=== PATIENT | male | born 1955 | race Caucasian/White ===

== ENCOUNTER 2023-01-11 19:32 | Inpatient (IN) | payer OTHER ==
[~2023-01-11] VITALS: Ht 193 cm; Wt 115.7 kg
[2023-01-11] MEDS ORDERED: IV NORMAL SALINE 1000 ML BAG IV ONE (19:45)
[2023-01-11] MEDS ORDERED: HYDROMORPHONE 1 MG/1 ML DISP.SYRIN IV ONE ×2 (19:45→22:15)
[2023-01-11] MEDS ORDERED: CEFTRIAXONE 1 G in IV DEXTROSE 5% 50 ML IV ONE (19:45)
[2023-01-11] MEDS ORDERED: ONDANSETRON 4 MG/2 ML VIAL IV ONE (19:45)
[2023-01-11] MEDS ORDERED: HYDROMORPHONE 1 MG/1 ML DISP.SYRIN ONE ×2 (19:49→22:18)
[2023-01-11] MEDS ORDERED: CEFTRIAXONE /D5W 50ML IVPB **ER PYXIS IV ONE (19:49)
[2023-01-11] MEDS ORDERED: ONDANSETRON 4 MG/2 ML VIAL ONE (19:49)
[2023-01-11 20:07] LABS: BASOPHILS # (AUTO) 0.1 K/UL (0.0-0.2); BASOPHILS % (AUTO) 0.3 % (0.0-2.0); HEMATOCRIT 46.9 % (36.7-47.1); HEMOGLOBIN 15.5 g/dL (12.5-16.3); LYMPHOCYTES # (AUTO) 1.1 K/uL (0.8-4.8); LYMPHOCYTES % (AUTO) 6.3 % (20.5-51.5); MEAN CORPUSCULAR HEMOGLOBIN 32.3 uug (23.8-33.4); MEAN CORPUSCULAR HGB CONC 33 g/dL (32.5-36.3); MEAN CORPUSCULAR VOLUME 97.5 fL (73.0-96.2); MONOCYTES # (AUTO) 0.1 K/uL (0.1-1.30); MONOCYTES % (AUTO) 0.4 % (0.0-11.0); NEUTROPHILS # (AUTO) 14.5 K/uL (1.8-8.9); PLATELET COUNT (AUTO) 238 K/uL (152-348); RED BLOOD CELL COUNT(AUTO) 4.81 MIL/uL (4.06-5.63); RED CELL DISTRIBUTION WIDTH 13.7 % (12.1-16.2); WHITE BLOOD COUNT (AUTO) 17.7 K/uL (3.6-10.2)
[2023-01-11 20:08] LABS: DIFFERENTIAL COMMENT 1
[2023-01-11 20:14] LABS: CALCIUM 9.5 mg/dL (8.5-10.1); CREATININE 1.7 mg/dL (0.6-1.3); POTASSIUM 4.5 mmol/L (3.5-5.1)
[2023-01-11 20:20] LABS: ALBUMIN 3.4 g/dL (3.4-5.0); BILIRUBIN,DIRECT 0.1 mg/dL (0.0-0.2); BILIRUBIN,TOTAL 0.3 mg/dL (0.2-1.0); TOTAL PROTEIN, SERUM 6.8 g/dL (6.4-8.2)
[2023-01-11] MEDS ORDERED: IOHEXOL 300MG/ML 100 ML INFUS..BTL ONE (20:26)
[2023-01-11] MEDS ORDERED: IV NORMAL SALINE 250 ML IV ONE (20:27)
[2023-01-11] MEDS ORDERED: SWABABLE VALVE TRANSFER SET EA MC ONE (20:27)
[2023-01-11] MEDS ORDERED: METRONIDAZOLE 500 MG/NS 100 ML PIGGYBACK IV ONE (21:15)
[2023-01-11] MEDS ORDERED: METRONIDAZOLE 500 MG/NS 100ML 100 ML IV ONE (21:18)
[2023-01-11] MEDS ORDERED: DIATR MEGLU/DIATRIZOATE SODIUM 30 ML BOTTLE ONE (21:18)
[2023-01-11] MEDS ORDERED: REMEDY ESSENTIAL ZINC PASTE 113 GM TP PRN (23:00)
[2023-01-11] MEDS ORDERED: ONDANSETRON 4 MG/2 ML VIAL IV PRN (23:00)
[2023-01-11] MEDS ORDERED: PIPERACILLIN SODIUM/TAZOBACTAM 4.5 G in IV DEXTROSE 5% 50 ML IV SCH ×2 (23:00→23:30)
[2023-01-11] MEDS ORDERED: ACETAMINOPHEN 325 MG TABLET PO PRN (23:00)
[2023-01-12] VITALS: BP 115/81; TEMP 97.9; O2SAT 95
[2023-01-12] MEDS ORDERED: PIPERACILLIN/TAZO 4.5 GM VIAL IV ONE ×2 (00:23→00:24)
[2023-01-12] MEDS: IV 1/2NS 1000 ML 1,000 ML IV PRN ×2 (00:57→20:37)
[2023-01-12] MEDS: MORPHINE SULFATE 2 MG/1 ML DISP.SYRIN IV PRN ×4 (01:58→20:25)
[2023-01-12 05:14] VITALS: BP 115/81; TEMP 98.2; O2SAT 93
[2023-01-12 07:27] LABS: BASOPHILS # (AUTO) 0.1 K/UL (0.0-0.2); BASOPHILS % (AUTO) 0.5 % (0.0-2.0); EOSINOPHILS % (AUTO) 0.2 % (0.0-7.0); HEMATOCRIT 46.7 % (36.7-47.1); HEMOGLOBIN 16.2 g/dL (12.5-16.3); LYMPHOCYTES # (AUTO) 1.3 K/uL (0.8-4.8); LYMPHOCYTES % (AUTO) 5.7 % (20.5-51.5); MEAN CORPUSCULAR HEMOGLOBIN 33.7 uug (23.8-33.4); MEAN CORPUSCULAR HGB CONC 35 g/dL (32.5-36.3); MEAN CORPUSCULAR VOLUME 97.2 fL (73.0-96.2); MONOCYTES # (AUTO) 1.5 K/uL (0.1-1.30); MONOCYTES % (AUTO) 6.3 % (0.0-11.0); NEUTROPHILS # (AUTO) 20.1 K/uL (1.8-8.9); NEUTROPHILS % (AUTO) 87.3 % (38.5-71.5); PLATELET COUNT (AUTO) 235 K/uL (152-348); RED CELL DISTRIBUTION WIDTH 13.5 % (12.1-16.2); WHITE BLOOD COUNT (AUTO) 23.1 K/uL (3.6-10.2)
[2023-01-12 07:37] LABS: DIFFERENTIAL COMMENT 1
[2023-01-12 07:41] LABS: ALBUMIN 3.3 g/dL (3.4-5.0); BILIRUBIN,TOTAL 0.4 mg/dL (0.2-1.0); CALCIUM 9.3 mg/dL (8.5-10.1); MAGNESIUM 2.3 mg/dL (1.8-2.4); PHOSPHOROUS 3.7 mg/dL (2.5-4.9); TOTAL PROTEIN, SERUM 7.1 g/dL (6.4-8.2)
[2023-01-12] MEDS ORDERED: LISI20TA30 PO (08:00)
[2023-01-12] MEDS ORDERED: HYDR25TA4 PO (08:00)
[2023-01-12] MEDS ORDERED: LEVO50TA PO (08:00)
[2023-01-12] MEDS ORDERED: DABI150C PO (08:00)
[2023-01-12] MEDS ORDERED: PANT40TA2 PO (08:00)
[2023-01-12] MEDS: PIPERACILLIN SODIUM/TAZOBACTAM 3.375 G in IV DEXTROSE 5% 100 ML IV SCH ×2 (08:18→16:20)
[2023-01-12 08:35] LABS: *BILIRUBIN,URIN NEGATIVE (NEGATIVE); *BLOOD, URINE NEGATIVE (NEGATIVE); *CLARITY,URINE CLEAR (CLEAR); *COLOR,URINE YELLOW (YELLOW); *KETONES,URINE TRACE (NEGATIVE); *PROTEIN,URINE 2+ (NEGATIVE); *UROBILINOGEN,URINE 0.2 E.U./dl (NORMAL); LEUKOCYTE ESTERASE ,URINE NEGATIVE (NEGATIVE); NITRITE, URINE NEGATIVE (NEGATIVE); PH,URINE 5.5 (5.0-8.0); UGLUCOSE NEGATIVE (NEGATIVE)
[2023-01-12] MEDS ORDERED: OMEP40CA21 PO (09:09)
[2023-01-12] MEDS ORDERED: LISINOPRIL 20 MG TABLET PO SCH (09:15)
[2023-01-12] MEDS ORDERED: DABIGATRAN ETEXILATE MESYLATE 75 MG CAPSULE PO SCH (09:15)
[2023-01-12] MEDS ORDERED: MORPHINE SULFATE 2 MG/1 ML DISP.SYRIN IV ONE (09:15)
[2023-01-12 10:09] LABS: BACTERIA,URINE FEW /HPF (NONE SEEN); RBC,URINE 0-3 /HPF (0-3)
[2023-01-12] MEDS: PANTOPRAZOLE SODIUM 40 MG TABLET.DR PO SCH (10:15)
[2023-01-12] MEDS: LEVOTHYROXINE SODIUM 50 MCG TABLET PO SCH (10:15)
[2023-01-12 10:25] VITALS: BP 127/76; TEMP 98; O2SAT 94
[2023-01-12] MEDS: DABIGATRAN ETEXILATE MESYLATE 75 MG CAPSULE PO SCH ×2 (10:40→21:46)
[2023-01-12 10:44] LABS: HIV-1 p24 ANTIGEN NON REACTIVE (NONREACTIVE); HIV-1/2 ANTIBODY NON REACTIVE (NONREACTIVE)
[2023-01-12 16:42] VITALS: BP 115/80; TEMP 98.2; O2SAT 95
[2023-01-12] MEDS ORDERED: KETOROLAC TROMETHAMINE 15 MG INJ IVP PRN (17:45)
[2023-01-12] MEDS ORDERED: ACETAMINOPHEN ES 500 MG TABLET PO PRN (17:45)
[2023-01-12 18:06] LABS: *BILIRUBIN,URIN NEGATIVE (NEGATIVE); *BLOOD, URINE NEGATIVE (NEGATIVE); *CLARITY,URINE CLEAR (CLEAR); *COLOR,URINE YELLOW (YELLOW); *KETONES,URINE TRACE (NEGATIVE); *PROTEIN,URINE 2+ (NEGATIVE); *UROBILINOGEN,URINE 0.2 E.U./dl (NORMAL); LEUKOCYTE ESTERASE ,URINE NEGATIVE (NEGATIVE); NITRITE, URINE NEGATIVE (NEGATIVE); PH,URINE 5.5 (5.0-8.0); UGLUCOSE NEGATIVE (NEGATIVE)
[2023-01-12] MEDS: GABAPENTIN 100 MG CAPSULE PO SCH (18:10)
[2023-01-12 18:13] LABS: *CREATININE,URINE 203.2 mg/dL (30-125); *URINE TOTAL PROTEIN RANDOM 62.6 mg/dL (<150/24HR)
[2023-01-12 18:19] LABS: BACTERIA,URINE FEW /HPF (NONE SEEN); RBC,URINE 0-3 /HPF (0-3); WBC,URINE NONE SEEN /HPF (0-3)
[2023-01-12 18:20] LABS: SQUAMOUS EPITHELIAL CELL,UR FEW /HPF (NONE SEEN); URIC ACID CRYSTALS,URINE MODERATE /HPF (NONE SEEN)
[2023-01-12 20:21] VITALS: BP 129/73; TEMP 98.1; O2SAT 93
[2023-01-12] MEDS ORDERED: ACETAMINOPHEN 325 MG TABLET PO ONE (21:00)
[2023-01-12] MEDS ORDERED: diphenhydrAMINE 25 MG CAP PO ONE (21:00)
[2023-01-12] MEDS: MAGNESIUM HYDROXIDE 30 ML LIQUID UDC PO PRN (21:21)
[2023-01-12 22:00] VITALS: O2SAT 98
[2023-01-13] MEDS: PIPERACILLIN SODIUM/TAZOBACTAM 3.375 G in IV DEXTROSE 5% 100 ML IV SCH ×3 (01:55→17:05)
[2023-01-13] MEDS: MORPHINE SULFATE 2 MG/1 ML DISP.SYRIN IV PRN (03:36)
[2023-01-13] MEDS: LEVOTHYROXINE SODIUM 50 MCG TABLET PO SCH (06:13)
[2023-01-13] MEDS: PANTOPRAZOLE SODIUM 40 MG TABLET.DR PO SCH (06:13)
[2023-01-13] MEDS: MAGNESIUM HYDROXIDE 30 ML LIQUID UDC PO PRN (06:13)
[2023-01-13] MEDS: HYDROCODONE/APAP 5-325MG TABLET PO PRN ×2 (06:37→12:37)
[2023-01-13] MEDS: GABAPENTIN 100 MG CAPSULE PO SCH ×3 (08:04→17:05)
[2023-01-13] MEDS: DABIGATRAN ETEXILATE MESYLATE 75 MG CAPSULE PO SCH ×2 (08:05→20:11)
[2023-01-13 08:30] LABS: BASOPHILS # (AUTO) 0.1 K/UL (0.0-0.2); EOSINOPHILS # (AUTO) 0.1 K/uL (0.0-0.7); EOSINOPHILS % (AUTO) 0.6 % (0.0-7.0); HEMOGLOBIN 14.1 g/dL (12.5-16.3); LYMPHOCYTES # (AUTO) 1.4 K/uL (0.8-4.8); LYMPHOCYTES % (AUTO) 12.5 % (20.5-51.5); MEAN CORPUSCULAR HEMOGLOBIN 33.6 uug (23.8-33.4); MEAN CORPUSCULAR HGB CONC 34 g/dL (32.5-36.3); MEAN CORPUSCULAR VOLUME 97.5 fL (73.0-96.2); MONOCYTES # (AUTO) 0.8 K/uL (0.1-1.30); MONOCYTES % (AUTO) 7.4 % (0.0-11.0); NEUTROPHILS # (AUTO) 8.5 K/uL (1.8-8.9); NEUTROPHILS % (AUTO) 78.5 % (38.5-71.5); PLATELET COUNT (AUTO) 206 K/uL (152-348); RED CELL DISTRIBUTION WIDTH 13.7 % (12.1-16.2); WHITE BLOOD COUNT (AUTO) 10.8 K/uL (3.6-10.2)
[2023-01-13 08:40] LABS: DIFFERENTIAL COMMENT 1
[2023-01-13 08:44] LABS: CALCIUM 8.9 mg/dL (8.5-10.1); CREATININE 1.6 mg/dL (0.6-1.3); POTASSIUM 4.2 mmol/L (3.5-5.1)
[2023-01-13] MEDS: BENZOCAINE/MENTH/CETYLPYRD LOZENGE MM PRN ×2 (09:35→17:05)
[2023-01-13] MEDS: IV 1/2NS 1000 ML 1,000 ML IV PRN (11:08)
[2023-01-13 11:19] VITALS: BP 124/79; TEMP 98.2; O2SAT 95
[2023-01-13] MEDS ORDERED: SIMETHICONE 40 MG/0.6 ML, 30ML BOTTLE PO PRN (13:15)
[2023-01-13] MEDS: SIMETHICONE 80 MG TAB.CHEW PO PRN (13:21)
[2023-01-13 15:13] VITALS: BP 123/80; TEMP 98.4; O2SAT 92
[2023-01-13 15:14] LABS: ANISOCYTOSIS 1+; PLATELET ESTIMATE ADEQUATE
[2023-01-13 16:03] LABS: BAND % (MANUAL) 7 % (0-10); LYMPHOCYTES % (MANUAL) 11 % (20-40); NEUTROPHILS % (MANUAL) 75 % (42-75)
[2023-01-13 16:10] LABS: EOSINOPHILS % (MANUAL) 3 % (0-8); MONOCYTES % (MANUAL) 4 % (2-10)
[2023-01-13] MEDS ORDERED: ACETAMINOPHEN 325 MG TABLET PO ONE (20:45)
[2023-01-13] MEDS ORDERED: diphenhydrAMINE 25 MG CAP PO ONE (20:45)
[2023-01-13 20:55] VITALS: BP 144/84; TEMP 98; O2SAT 97
[2023-01-13 20:58] VITALS: O2SAT 98
[2023-01-14] MEDS: PIPERACILLIN SODIUM/TAZOBACTAM 3.375 G in IV DEXTROSE 5% 100 ML IV SCH ×3 (00:34→16:54)
[2023-01-14] MEDS: IV 1/2NS 1000 ML 1,000 ML IV PRN (04:54)
[2023-01-14 05:33] VITALS: BP 126/78; TEMP 98.6; O2SAT 98
[2023-01-14] MEDS: PANTOPRAZOLE SODIUM 40 MG TABLET.DR PO SCH (06:26)
[2023-01-14] MEDS: LEVOTHYROXINE SODIUM 50 MCG TABLET PO SCH (06:26)
[2023-01-14 06:48] LABS: BASOPHILS % (AUTO) 0.5 % (0.0-2.0); EOSINOPHILS # (AUTO) 0.3 K/uL (0.0-0.7); EOSINOPHILS % (AUTO) 3.1 % (0.0-7.0); HEMATOCRIT 39.4 % (36.7-47.1); HEMOGLOBIN 13.3 g/dL (12.5-16.3); LYMPHOCYTES # (AUTO) 1.2 K/uL (0.8-4.8); LYMPHOCYTES % (AUTO) 14.9 % (20.5-51.5); MEAN CORPUSCULAR HGB CONC 34 g/dL (32.5-36.3); MEAN CORPUSCULAR VOLUME 97.9 fL (73.0-96.2); MONOCYTES # (AUTO) 0.7 K/uL (0.1-1.30); MONOCYTES % (AUTO) 8.7 % (0.0-11.0); NEUTROPHILS % (AUTO) 72.8 % (38.5-71.5); PLATELET COUNT (AUTO) 202 K/uL (152-348); RED BLOOD CELL COUNT(AUTO) 4.03 MIL/uL (4.06-5.63); RED CELL DISTRIBUTION WIDTH 13.5 % (12.1-16.2); WHITE BLOOD COUNT (AUTO) 8.3 K/uL (3.6-10.2)
[2023-01-14 07:01] LABS: CALCIUM 8.4 mg/dL (8.5-10.1); CREATININE 1.6 mg/dL (0.6-1.3)
[2023-01-14 07:06] LABS: DIFFERENTIAL COMMENT 1
[2023-01-14 08:20] VITALS: O2SAT 99
[2023-01-14] MEDS: SIMETHICONE 80 MG TAB.CHEW PO PRN (08:39)
[2023-01-14] MEDS: GABAPENTIN 100 MG CAPSULE PO SCH ×3 (08:39→16:54)
[2023-01-14] MEDS: DABIGATRAN ETEXILATE MESYLATE 75 MG CAPSULE PO SCH ×2 (08:41→20:59)
[2023-01-14] MEDS: BENZOCAINE/MENTH/CETYLPYRD LOZENGE MM PRN (10:56)
[2023-01-14] MEDS: HYDROCODONE/APAP 5-325MG TABLET PO PRN (10:56)
[2023-01-14 11:36] VITALS: BP 144/78; TEMP 98.6; O2SAT 96
[2023-01-14 14:46] LABS: BAND % (MANUAL) 8 % (0-10); EOSINOPHILS % (MANUAL) 4 % (0-8); LYMPHOCYTES % (MANUAL) 17 % (20-40); MONOCYTES % (MANUAL) 5 % (2-10); NEUTROPHILS % (MANUAL) 66 % (42-75)
[2023-01-14 14:47] LABS: ANISOCYTOSIS 1+; PLATELET ESTIMATE ADEQUATE
[2023-01-14 16:00] VITALS: BP 142/81; TEMP 97.7; O2SAT 96
[2023-01-14 20:05] VITALS: BP 113/85; TEMP 98.2; O2SAT 96
[2023-01-14 20:28] VITALS: O2SAT 98
[2023-01-15] MEDS: PIPERACILLIN SODIUM/TAZOBACTAM 3.375 G in IV DEXTROSE 5% 100 ML IV SCH ×2 (01:07→09:15)
[2023-01-15] MEDS: HYDROCODONE/APAP 5-325MG TABLET PO PRN (05:21)
[2023-01-15] MEDS: LEVOTHYROXINE SODIUM 50 MCG TABLET PO SCH (06:11)
[2023-01-15] MEDS: PANTOPRAZOLE SODIUM 40 MG TABLET.DR PO SCH (06:33)
[2023-01-15 06:48] VITALS: BP 124/74; TEMP 98.1; O2SAT 95
[2023-01-15 08:03] LABS: BASOPHILS % (AUTO) 0.5 % (0.0-2.0); EOSINOPHILS # (AUTO) 0.3 K/uL (0.0-0.7); EOSINOPHILS % (AUTO) 4.2 % (0.0-7.0); HEMATOCRIT 38.6 % (36.7-47.1); HEMOGLOBIN 13.3 g/dL (12.5-16.3); LYMPHOCYTES # (AUTO) 1.2 K/uL (0.8-4.8); LYMPHOCYTES % (AUTO) 18.2 % (20.5-51.5); MEAN CORPUSCULAR HEMOGLOBIN 33.4 uug (23.8-33.4); MEAN CORPUSCULAR HGB CONC 34 g/dL (32.5-36.3); MEAN CORPUSCULAR VOLUME 97.1 fL (73.0-96.2); MONOCYTES # (AUTO) 0.7 K/uL (0.1-1.30); MONOCYTES % (AUTO) 10.7 % (0.0-11.0); NEUTROPHILS # (AUTO) 4.5 K/uL (1.8-8.9); NEUTROPHILS % (AUTO) 66.4 % (38.5-71.5); PLATELET COUNT (AUTO) 223 K/uL (152-348); RED BLOOD CELL COUNT(AUTO) 3.97 MIL/uL (4.06-5.63); RED CELL DISTRIBUTION WIDTH 13.6 % (12.1-16.2); WHITE BLOOD COUNT (AUTO) 6.8 K/uL (3.6-10.2)
[2023-01-15 08:35] LABS: DIFFERENTIAL COMMENT 1
[2023-01-15 08:36] LABS: ALBUMIN 2.6 g/dL (3.4-5.0); BILIRUBIN,TOTAL 0.8 mg/dL (0.2-1.0); CALCIUM 8.9 mg/dL (8.5-10.1); CREATININE 1.5 mg/dL (0.6-1.3); MAGNESIUM 2.3 mg/dL (1.8-2.4); PHOSPHOROUS 2.8 mg/dL (2.5-4.9); POTASSIUM 4.5 mmol/L (3.5-5.1); TOTAL PROTEIN, SERUM 6.2 g/dL (6.4-8.2)
[2023-01-15] MEDS ORDERED: AMOX-430 PO (08:58)
[2023-01-15] MEDS: GABAPENTIN 100 MG CAPSULE PO SCH ×2 (09:15→12:45)
[2023-01-15] MEDS: DABIGATRAN ETEXILATE MESYLATE 75 MG CAPSULE PO SCH (09:16)
[2023-01-15 11:27] VITALS: BP 116/74; TEMP 97.9; O2SAT 96
[2023-01-15 13:01] LABS: BAND % (MANUAL) 10 % (0-10); LYMPHOCYTES % (MANUAL) 17 % (20-40); NEUTROPHILS % (MANUAL) 65 % (42-75)
[2023-01-15 13:02] LABS: ANISOCYTOSIS 1+; EOSINOPHILS % (MANUAL) 3 % (0-8); MONOCYTES % (MANUAL) 5 % (2-10); PLATELET ESTIMATE ADEQUATE
== END 2023-01-15 15:15 | disposition home or self-care (01) | DRG 919 ==
LOC: ER 19:35 → MEDSURG3 23:06
PROVIDERS: ADMIT Internal Medicine; ATTEND Internal Medicine
DX: K91.71 Accidental puncture and laceration of a digestive system organ or structure during a digestive system procedure (principal); K65.9 Peritonitis, unspecified; I48.20 Chronic atrial fibrillation, unspecified; E87.1 Hypo-osmolality and hyponatremia; D68.59 Other primary thrombophilia; N17.9 Acute kidney failure, unspecified; Y83.8 Other surgical procedures as the cause of abnormal reaction of the patient, or of later complication, without mention of misadventure at the time of the procedure; Y81.3 Surgical instruments, materials and general- and plastic-surgery devices (including sutures) associated with adverse incidents; Y92.530 Ambulatory surgery center as the place of occurrence of the external cause; T81.82XA Emphysema (subcutaneous) resulting from a procedure, initial encounter; J45.909 Unspecified asthma, uncomplicated; M89.8X9 Other specified disorders of bone, unspecified site; I12.9 Hypertensive chronic kidney disease with stage 1 through stage 4 chronic kidney disease, or unspecified chronic kidney disease; N18.9 Chronic kidney disease, unspecified; I77.810 Thoracic aortic ectasia; K66.0 Peritoneal adhesions (postprocedural) (postinfection); Z87.442 Personal history of urinary calculi; Z86.73 Personal history of transient ischemic attack (TIA), and cerebral infarction without residual deficits; Z90.49 Acquired absence of other specified parts of digestive tract; D72.829 Elevated white blood cell count, unspecified
CPT/HCPCS: 36415; 70030-TC; 71045; 83690; 83735; 84100; 84300; 85025; 85730; 86803; 87040; 87806; 93005; A4663; G0378; J0696; J1170; J1885; J2270; J2405; J2543; J3490; J7040; Q0163; Q9963; Q9967